=== PATIENT | female | born 1995 | race African-American/Black ===

== ENCOUNTER 2017-11-14 18:19 | Emergency (ER) | payer OTHER ==
[2017-11-14] MEDS: IBUPROFEN 600 MG TAB PO (20:14)
[2017-11-14] MEDS: METHOCARBAMOL 500 MG TAB PO (20:14)
== END 2017-11-14 20:58 | disposition home or self-care (01) ==
LOC: M ED 18:19
DX: M54.32 Sciatica, left side (principal); W00.9XXA Unspecified fall due to ice and snow, initial encounter; Y92.099 Unspecified place in other non-institutional residence as the place of occurrence of the external cause; Y93.9 Activity, unspecified; Z79.899 Other long term (current) drug therapy
CPT/HCPCS: 99283

== ENCOUNTER 2018-03-11 17:45 | Emergency (ER) | payer OTHER ==
[2018-03-11 19:19] LABS: KETONE, URINE AUTO RFX 1+ mg/dL (NEGATIVE); LEUKOCYTE ESTERASE UR AUTO RFX NEGATIVE (NEGATIVE); MUCUS, URINE RFX SMALL (NEGATIVE); NITRITE, URINE AUTO RFX NEGATIVE (NEGATIVE); RBC, URINE AUTO RFX 2 /HPF (0-3); SPECIFIC GRAVITY UR AUTO RFX 1.029 (1.002-1.035); SQUAM EPITHELIAL CELL UR AURFX 1 /HPF (0-6); WBC, URINE AUTO RFX 2 /HPF (0-3)
[2018-03-11] MEDS: NS 1,000 ML IV (20:10)
[2018-03-11] MEDS: ONDANSETRON 4MG/2ML VIAL (J2405) IV (20:10)
[2018-03-11] MEDS: ONDANSETRON 4 MG ORAL DISINTEGRATING TAB (Q0162 PER 1MG) PO (23:00)
== END 2018-03-11 23:13 | disposition home or self-care (01) ==
LOC: M ED 17:45
DX: E86.0 Dehydration (principal); F17.200 Nicotine dependence, unspecified, uncomplicated; Z91.030 Bee allergy status; Z79.3 Long term (current) use of hormonal contraceptives
CPT/HCPCS: J2405